=== PATIENT | female | born 2000 | race Caucasian/White ===

== ENCOUNTER 2020-05-17 21:28 | Emergency (ER) | payer MEDICAID ==
[~2020-05-17] VITALS: Ht 167.6 cm; Wt 131.8 kg
[2020-05-17 21:40] VITALS: Ht 167.6 cm; Wt 131.8 kg
[2020-05-17] MEDS ORDERED: BENADRYL25 MG PO (22:49)
[2020-05-17 23:27] VITALS: BP 128/73
== END 2020-05-17 23:28 | disposition home or self-care (01) ==
LOC: D.ER 21:28
DX: T78.1XXA Other adverse food reactions, not elsewhere classified, initial encounter (principal); R22.0 Localized swelling, mass and lump, head; L50.9 Urticaria, unspecified; I10 Essential (primary) hypertension